=== PATIENT | female | born 1965 | race Caucasian/White ===

== ENCOUNTER 2022-01-02 22:31 | Observation (INO) | payer BC ==
[~2022-01-02] VITALS: Ht 170.2 cm; Wt 87.4 kg
[2022-01-02] MEDS ORDERED: NITROGLYCERIN 0.4 MG SL TABS BTL 25'S SL PRN (22:45)
[2022-01-02] MEDS ORDERED: ACETAMINOPHEN 325 MG TABLET PO PRN (22:45)
[2022-01-02] MEDS ORDERED: morphine INJ 4 MG/ML 1 ML (VIAL/SYRINGE) IV PRN (22:45)
[2022-01-02] MEDS ORDERED: polyethylene glycoL POWDER 17 GM (MIRALAX) PACK PO PRN (22:45)
[2022-01-02] MEDS ORDERED: CALCIUM CARBONATE 500 MG (TUMS) TAB.CHEW PO PRN (22:45)
[2022-01-02] MEDS ORDERED: ONDANSETRON 4 MG/2 ML (SDV) Z0FRAN IV PRN (22:45)
[2022-01-02] MEDS ORDERED: MELATONIN 3 MG TABLET PO PRN (22:45)
[2022-01-02] MEDS ORDERED: PATIENT MAY USE OWN MEDS, ALL PO SCH (22:45)
[2022-01-03] VITALS (9 sets, daily range): BP systolic 98–158; BP diastolic 62–87
[2022-01-03] MEDS: NS IV 1000 ML 1,000 ML IV SCH ×3 (00:35→14:51)
[2022-01-03 05:49] LABS: HEMATOCRIT 41 % (35-52); HEMOGLOBIN 13.6 g/dL (11.5-16.0); MEAN CORPUSCULAR HEMOGLOBIN 30 pg (25-34); MEAN CORPUSCULAR HGB CONC 33 g/dL (32-36); MEAN CORPUSCULAR VOLUME 89 fL (80-99); PLATELET COUNT 275 10^3/uL (130-400); WHITE BLOOD COUNT 6.4 10^3/uL (4.3-11.0)
[2022-01-03 06:21] LABS: CALCIUM 9.3 MG/DL (8.5-10.1)
[2022-01-03 06:26] LABS: CREATININE SERUM 0.77 MG/DL (0.60-1.30)
[2022-01-03] MEDS: inSUlin ASPART (NovoLOG) 1 UNIT/0.01 ML (CHARGE PER UNIT) SC SCH ×2 (06:30→11:59)
[2022-01-03] MEDS: ASPIRIN E.C. 81 MG (ECOTRIN) TAB PO SCH (08:23)
--- NOTE | 2022-01-03 09:57 | Consultation-Cardiology ---
HPI-Cardiology Cardiology Consultation: Date of Consultation 01/03/22 Date of Admission 01/03/22 Attending Physician Admitting Physician Admitting Physician: Jennifer Reyes MD Attending Physician: Jennifer Reyes MD Consulting Physician RYANNE SEALS JR, MD HPI: Time Seen by a Provider: 09:55 Chief Complaint: REASON FOR CONSULTATION: Chest pain. I had the pleasure of seeing Oliva on the medical/surgical unit at [facility] in [place], [place] today. She has no known history of coronary artery disease. For about the past week she has been having some intermittent episodes of midsternal chest pain. This would make her feel short of breath. These were usually short-lived. These did not seem to occur with exertion. She would just take some deep breaths and wait for this to pass. She did not seek medical attention. However, yesterday the chest discomfort became more severe. This was again midsternal and associated with shortness of breath. She went to an outside hospital and was given sublingual nitroglycerin and her chest discomfort resolved. She denies any further chest discomfort. She had troponin levels drawn at the outside hospital which were found to be abnormal and she was mckeon sferred to our facility for further treatment and evaluation. She denies dyspnea on exertion, paroxysmal nocturnal dyspnea, orthopnea, or palpitations. She has had some occasional lightheaded spells but denies any syncope. She denies any lower extremity edema. Certain portions of this document may have been dictated utilizing voice recognition technology. Inherent to this technology, typographical and grammatical errors may exist. As much as I am diligent to identify and correct these mistakes, some errors may remain in the document. Review of Systems-Cardiology Review of Systems Other comments Review of 10 organ systems is as per the history of present illness, otherwise negative. NEW-Rmoeef-Gymqvo Hx Patient Social History Smoking Status: Current Everyday Smoker Have you traveled recently?: No Alcohol Use?: Yes Pt feels they are or have been: No Tobacco type used: Cigarettes Past Medical History PMH As described under Assessment. Family Medical History Family Medical History: Her father had coronary stents in his 70's and is now in his 80's. Allergies and Home Medications Allergies Coded Allergies: No Known Drug Allergies (Unverified , 01/03/22) Patient Home Medication List Home Medication List Reviewed: Yes Ibuprofen (Ibuprofen) 200 Mg Tablet, 800 MG PO Q8H PRN for PAIN-MILD (1-4), (Reported) Entered as Reported by: CARLOS CAMNT on 01/03/22 1201 Last Action: Reviewed Exam Vital Signs Vital Signs Date Time Temp Pulse Resp B/P (MAP) Pulse Ox O2 Delivery O2 Flow Rate FiO2 01/03/22 12:26 36.4 75 20 126/78 (94) 97 Room Air Physical Exam General: Alert. No acute distress. Well nourished and appears stated age. She is overweight. Eye: Extraocular movements are intact. Conjunctivae are clear. There are no xanthelasma. HENT: Normocephalic. Atraumatic. Carotid pulsations 2/2 without bruits. Neck: Jugular venous pressure does not appear elevated. No thyromegaly appreciated. Respiratory: Lungs are clear to auscultation. Respirations are non-labored. Jewell th sounds are equal. Symmetrical chest wall expansion. Cardiovascular: Normal rate. Regular rhythm. No murmur. No gallop. Point of maximal impulse is not appear displaced. Good pulses equal in all extremities. No edema. Gastrointestinal: Soft. Normal bowel sounds. Skin: Skin turgor is normal. There is no pallor. Musculoskeletal: No kyphosis or scoliosis appreciated. Neurologic: Alert and oriented to person, place, time. Cranial nerves 3-12 appear grossly intact. The patient has good motor tone strength in the upper and lower extremities bilaterally. Psychiatric: Cooperative. Appropriate mood & affect. Labs Laboratory Tests Test 01/03/22 05:20 01/03/22 08:50 01/03/22 11:27 Range/Units White Blood Count 6.4 4.3-11.0 10^3/uL Red Blood Count 4.60 3.80-5.11 10^6/uL Hemoglobin 13.6 11.5-16.0 g/dL Hematocrit 41 35-52 % Mean Corpuscular Volume 89 80-99 fL Mean Corpuscular Hemoglobin 30 25-34 pg Mean Corpuscular Hemoglobin Concent 33 32-36 g/dL Red Cell Distribution Width 12.8 10.0-14.5 % Platelet Count 275 130-400 10^3/uL Mean Platelet Volume 10.0 9.0-12.2 fL Sodium Level 141 135-145 MMOL/L Potassium Level 4.0 3.6-5.0 MMOL/L Chloride Level 109 H 98-107 MMOL/L Carbon Dioxide Level 22 21-32 MMOL/L Anion Gap 10 5-14 MMOL/L Blood Urea Nitrogen 10 7-18 MG/DL Creatinine 0.77 0.60-1.30 MG/DL Estimat Glomerular Filtration Rate 89 BUN/Creatinine Ratio 13 Glucose Level 97 70-105 MG/DL Calcium Level 9.3 8.5-10.1 MG/DL Troponin I 0.047 H 0.042 H <0.028 NG/ML Triglycerides Level 156 H <150 MG/DL Cholesterol Level 212 H < 200 MG/DL LDL Cholesterol Direct 163 H 1-129 MG/DL VLDL Cholesterol 31 5-40 MG/DL HDL Cholesterol 36 L 40-60 MG/DL Glucometer 94 70-110 MG/DL Radiology ECHOCARDIOGRAM (01/03/2022): 1. Left ventricle: The cavity size is normal. There is mild concentric hypertrophy. Systolic function is normal. The estimated ejection fraction is 60- 65%. There were no regional wall motion abnormalities identified. Doppler parameters are consistent with abnormal left ventricular relaxation (grade 1 diastolic dysfunction). 2. Mitral valve: There is mild mitral regurgitation. 3. Pulmonary arteries: The estimated pulmonary artery systolic pressure is 43 mmHg assuming a right atrial pressure of 5 mmHg. ECG Impression ECG Comment Sinus rhythm with sinus arrhythmia. Diagnosis/Problems Diagnosis/Problems (1) Chest pain Assessment & Plan: Exact etiology unclear. This sounds also it is consistent with cardiac chest pain although there did not seem to be any change with exertion. On the other hand, she does have a borderline abnormal troponin level. As such, I recommend further evaluation with a cardiac catheterization. She has been started on aspirin and statin medication. I have explained the benefits and risks of the procedure to the patient and her family and all are in agreement to proceed. (2) Troponin level elevated Assessment & Plan: She has mild elevation of the troponin level and no changes on her electrocardiogram. This could be due to a non-ST elevation myocardial infarction or possibly some other etiology of troponin elevation. We will evaluate her further with a cardiac catheterization as above. (3) Mixed hyperlipidemia Assessment & Plan: Her LDL level is elevated. I have ordered rosuvastatin. (4) Pulmonary hypertension Assessment & Plan: She has mild elevation of the pulmonary pressure noted on her echocardiogram. This could be due to undiagnosed underlying chronic obstructive pulmonary disease related to her cigarette smoking. On the other hand, if her cardiac catheterization does not reveal any obstructive coronary artery disease, then a pulmonary embolism would be in the differential diagnosis of her chest discomfort and we may need to consider CT angiogram of the chest if that is the case. (5) Obesity Assessment & Plan: She needs to work on weight loss. (6) Cigarette smoker Assessment & Plan: Cigarette smoking cessation was strongly encouraged. RYANNE SEALS JR, MD Jan 03, 2022 09:57
[2022-01-03] MEDS ORDERED: NICOTINE 7 MG (NICODERM) PATCH TD ONE (10:15)
[2022-01-03] MEDS ORDERED: HEParin (CATH LAB) 2,000 ML IV ONE (11:49)
[2022-01-03] MEDS ORDERED: LIDOCAINE 1% INJ 20 ML VIAL ONE (11:49)
--- NOTE | 2022-01-03 11:56 | History & Physical-Hospitalist ---
History of Present Illness HPI/Chief Complaint Patient is a 56-year-old female with past medical history of hyperlipidemia and tobacco abuse who presented to the emergency department due to chest pain. She presented to outside hospital at [facility] after a 2-day history of chest pressure and tightness. She reports that started on the and was worse with exertion. It improved with rest. She was also dyspneic with exertion. She has no previous history like this. In the emergency department she was found to have a mildly elevated high-sensitivity troponin at 22 which trended up to 43. She was transferred here for cardiac evaluation. Troponin here was 0.047 and cardiology has been consulted. She reports persistent chest pressure at this time. Source: patient Date Seen 01/03/22 Time Seen by a Provider: 10:30 Attending Physician PCP Admitting Physician: Mikayla Reyes MD Attending Physician: Mikayla Reyes MD Referring Physician Date of Admission Jan 02, 2022 at 23:26 Home Medications & Allergies Home Medications Reviewed patient Home Medication Reconciliation performed by pharmacy medication reconciliations farm technician and/or nursing. Patients Allergies have been reviewed. Allergies Allergies Coded Allergies No Known Drug Allergies (Unverified01/03/22) Past Ppmlszi-Znlmya-Jfhafm Hx Patient Social History Tobacco Use?: Yes Tobacco type used: Cigarettes Smoking Status: Current Everyday Smoker (1ppd) Smokeless type used: Pouch Smokeless Tobacco Frequency: Light User Use of E-Cig and/or Vaping dev: No Substance use?: No Alcohol Use?: Yes Alcohol type: Beer Additional alcohol type: wine coolers Alcohol Frequency: Rarely Pt feels they are or have been: No Immunizations Up To Date Tetanus Booster (TDap): Unknown Hepatitis A: No Hepatitis B: No Current Status status: No status: No Advance Directives: No Communicates: Verbally Primary Language: Albanian Preferred Spoken Language: Albanian Is interpretation needed?: No Implanted or Applied Medical D: None Past Medical History Surgeries: Hysterectomy, Tonsillectomy, Tubal Ligation High Cholesterol Family Medical History Reviewed Nursing Family Hx Heart Disease, CAD Over 55 Years Old Review of Systems Constitutional: No chills, No diaphoresis, No fever EENTM: no symptoms reported Respiratory: No cough; dyspnea on exertion, short of breath Cardiovascular: chest pain; No edema, No Hx of Intervention, No syncope Gastrointestinal: No abdominal pain, No constipation, No diarrhea, No nausea, No vomiting Genitourinary: no symptoms reported Musculoskeletal: no symptoms reported Skin: no symptoms reported Psychiatric/Neurological: No Symptoms Reported Physical Exam Physical Exam Vital Signs Vital Signs - First Documented 01/03/22 00:01 Temp 36.6 Pulse 70 Resp 16 B/P (MAP) 150/81 (104) Pulse Ox 97 O2 Delivery Room Air Capillary Refill : Height, Weight, BMI Height: '" Weight: lbs. oz. kg; 30.17 BMI Method: General Appearance: No Apparent Distress, WD/WN HEENT: PERRL/EOMI, Moist Mucous Membranes; No Scleral Icterus (L), No Scleral Icterus (R) Neck: Normal Inspection, Supple Respiratory: Lungs Clear, No Accessory Muscle Use, No Respiratory Distress Cardiovascular: Regular Rate, Rhythm, No JVD, No Murmur Gastrointestinal: Normal Bowel Sounds, Non Tender, Soft Extremity: Normal Capillary Refill, No Calf Tenderness, No Pedal Edema Neurologic/Psychiatric: Alert, Oriented x3, Normal Mood/Affect; No Aphasia, No Facial Droop Skin: Normal Color, Warm/Dry Results Results/Procedures Labs Laboratory Tests 01/03/22 05:20 Patient resulted labs reviewed. Assessment/Plan Admission Diagnosis Chest pain Admission Status: Observation Assessment and Plan Chest pain elevated troponin hyperlipidemia Troponin this AM pending Cardiology consulted, appreciate recs Echo ordered Telemetry ASA and Lovenox given at OSH tobacco abuse recommended cessation Is currently starting wellbutrin through PCP to help quit smoking MIKAYLA REYES MD Jan 03, 2022 11:56
[2022-01-03] MEDS ORDERED: IBUP-2473 PO (12:01)
[2022-01-03] MEDS ORDERED: NS IV 1000 ML 1,000 ML IV ONE (14:00)
[2022-01-03] MEDS ORDERED: VERAPAMIL 5 MG/2 ML (CALAN) VIAL IV ONE (16:51)
[2022-01-03] MEDS ORDERED: MIDAZOLAM 5 MG/5 ML (VERSED) VIAL ONE (16:51)
[2022-01-03] MEDS ORDERED: NITRO DRIP 25000 MCG/D5W 250 ML IV ONE (16:51)
[2022-01-03] MEDS ORDERED: HEParin 1000 UNIT/ML (10ML VIAL) FOR BOLUS ONE (16:51)
[2022-01-03] MEDS ORDERED: fentaNYL INJ 100 MCG/2 ML AMP ONE (16:52)
--- NOTE | 2022-01-03 17:11 | Pre-Op Note & Conscious Sedat ---
Pre-Operative Progress Note H&P Reviewed The H&P was reviewed, patient examined and no changes noted. Date H&P Reviewed: Jan 03, 2022 Time H&P Reviewed: 17:10 Pre-Op Diagnosis: Non-ST elevation myocardial infarction Given her current clinical status, she is considered moderately frail. She has no history of heart failure. Conscious Sedation Pre-Proced Time 17:10 ASA Score 2 For ASA 3 and 4: Consider anesthesia and medical clearance. Also, for patients with a history of failed moderate sedation consider anesthesia. Airway Lungs Heart ASA score ASA 1: a normal healthy patient ASA 2: a patient with a mild systemic disease (mid diabetes, controlled hypertension, obesity ASA 3: a patient with a severe systemic disease that limits activity (angina, COPD, prior Myocardial infarction) ASA 4: a patient with an incapacitating disease that is a constant threat to life (CHF, renal failure) ASA 5: a moribund patient not expected to survive 24 hrs. (ruptured aneurysm) ASA 6: a declared brain- patient whose organs are being harvested. For emergent operations, add the letter E after the classification Mallampati Classification Grade 2 Sedation Plan Analgesia, Amnesia, Plan communicated to team members, Discussed options with patient/fam, Discussed risks with patient/fam The patient is an appropriate candidate to undergo the planned procedure, sedation, and anesthesia. The patient immediately re-assessed prior to indication. RYANNE SEALS JR, MD Jan 03, 2022 17:10
[2022-01-03] MEDS ORDERED: morphine INJ 4 MG/ML 1 ML (VIAL/SYRINGE) ONE (17:41)
[2022-01-03] MEDS ORDERED: TICAGRELOR 90 MG TABLET (BRILINTA) PO ONE (17:54)
--- NOTE | 2022-01-03 18:24 | Cardiac Cath Report ---
CARDIAC CATHETERIZATION DATE OF PROCEDURE: 01/03/2022 INDICATION: Non-ST elevation myocardial infarction. HISTORY: The patient is a 56 year old female with no previously known history of coronary artery disease who presented to an outside hospital with crescendo chest pain. She was found to have an elevated high-sensitivity troponin level at the outside facility. She had been given sublingual nitroglycerin and her chest discomfort resolved. She was then transferred to our hospital and again had mild elevation of the troponin level consistent with a non-ST elevation myocardial infarction. As such, she is now referred for further evaluation with a cardiac catheterization. Given her current clinical status, she is considered moderately frail. She has no history of heart failure. PROCEDURES PERFORMED: 1. Left heart catheterization with hemodynamic measurements. 2. Diagnostic [place] coronary angiography. 3. Right brachial artery angiography (third order right upper extremity). 4. Status post drug-eluting stent placement to the distal left circumflex coronary artery (third obtuse marginal branch). This was the ischemia related vessel for the acute non-ST elevation myocardial infarction. PROCEDURE DESCRIPTION: After informed consent and in the fasting state, left heart catheterization was performed through the right radial artery utilizing a 6 Malawian system by percutaneous approach. Standard 5 Malawian Alana catheters were utilized for the diagnostic portion of the procedure. Once the left circumflex coronary artery was identified as the ischemia related vessel, I attempted to pass a 6 Malawian CLS 3.5 guide catheter from the right radial artery into the ascending aorta. However, there was significant amount of spasm of the right brachial artery. I performed an angiogram of the right brachial artery through the CLS 3.5 guide catheter and this confirms significant spasm of the right brachial artery. The guide catheter was removed. I subsequently gained access to the right femoral artery utilizing a micropuncture technique by percutaneous approach. The micropuncture sheath was then exchanged for a stand joe 6 Malawian sheath. The CLS 3.5 guide catheter was then utilized for the percutaneous coronary intervention. All catheters were exchanged over a guidewire. Following the procedure, a vascular band was applied to the radial artery access site and the sheath was removed with good hemostasis. Following the procedure, a right femoral angiogram revealed the sheath to be entering ch est above the bifurcation and the vessel was free of significant disease. A Mynx closure device was deployed for femoral arterial hemostasis. RESULTS: HEMODYNAMICS: The aortic pressure was 142/78 mmHg. The left ventricular pressure was 141/0 mmHg with a left ventricular end-diastolic pressure of 14 mmHg. There was no significant pressure gradient upon pullback across aortic va lve. CORONARY ANGIOGRAPHY: Left main coronary artery: Free of significant disease. Left anterior descending coronary artery: Free of significant disease. Left circumflex coronary artery: Codominant and the main vessel was free of significant disease. The first major obtuse marginal branch had a 70% stenosis in the ostium with MARLEN-3 flow. The third major obtuse marginal branch had a 99% stenosis with MARLEN I flow. This was most likely the ischemia related vessel for the acute myocardial infarction. There was a small left posterolateral branch which was free of significant disease. Right coronary artery: Codominant and free of significant disease. RIGHT BRACHIAL ARTERY ANGIOGRAM: After removing the 5 Malawian JR4 catheter, the patient was having some apparent spasm in the right upper extremity. When I passed the 5 Malawian JL 4 catheter up into the right radial artery, there was again some spasm and the patient was uncomfortable. I removed the guidewire. Intra-arterial nitroglycerin was sent injected through the diagnostic catheter. I was unable to pass the diagnostic catheter into the aortic root and perform the left coronary angiogram. However, when I then attempted to pass the 6 Malawian CLS 3.5 guide catheter into the aortic root from the right radial artery, the patient was having even more apparent spasm. The guidewire was removed. The CLS 3.5 guide catheter was positioned in the distal segment of the brachial artery and an angiogram was performed. This showed significant spasm of the right brachial artery. Additional intra-arterial nitroglycerin was administered through the guide catheter but the spasm persisted. As such, the right radial artery access site was aborted for any additional attempt at the percutaneous intervention. PERCUTANEOUS CORONARY INTERVENTION: Percutaneous coronary intervention was carried out on the third obtuse marginal branch through the 6 Malawian CLS 3.5 guide catheter from the right femoral approach. The lesion was successfully crossed with a Whisper medium support guidewire. I subsequently performed coronary and plasty with a 2 x 12 mm Trek balloon at a pressure of 6 rosetta. I then advanced a 2 x 15 mm Resolute Dimitri stent into the third obtuse marginal branch. There was a significant amount of movement in the system. I then advanced a Prowater guidewire into the left posterolateral branch which helped to stabilize the entire system. I subsequently deployed the Resolute Dimitri stent in the third obtuse marginal branch at a pressure of 14 rosetta. Following stent placement, there was 0% residual stenosis with MARLEN-3 flow. I could see some evidence of probable spasm around the stent. IMPRESSION: 1. Mildly elevated left heart pressures. 2. There was a 99% stenosis of the third obtuse marginal branch. This was most likely the ischemia related vessel for the non-ST elevation myocardial infarction. 3. Right brachial artery angiogram revealed significant spasm of the right brachial artery. 4. Status post drug-eluting stent placement to the third obtuse marginal branch with a 2 x 15 mm Resolute Dimitri stent was 0% residual stenosis and MARLEN-3 flow. Following the stent placement, there did seem to be some appearance of spasm around the stent. 5. The patient is known to have normal left ventricular systolic function with an estimated ejection fraction of 60-65% by echocardiogram performed earlier today. Certain portions of this document may have been dictated utilizing voice recognition technology. Inherent to this technology, typographical and grammatical errors may exist. As much as I am diligent to identify and correct these mistakes, some errors may remain in the document. RYANNE SEALS JR, MD Jan 03, 2022 18:24
[2022-01-03] MEDS ORDERED: ENOXAPARIN 40 MG/0.4 ML (LOVENOX) SYR SC SCH (18:30)
[2022-01-03] MEDS ORDERED: ISOSORBIDE MONONITRATE 30 MG (IMDUR) TAB PO NR (18:30)
[2022-01-03] MEDS ORDERED: NS IV 1000 ML 1,000 ML IV SCH (18:30)
[2022-01-03] MEDS ORDERED: TICAGRELOR 90 MG TABLET (BRILINTA) PO SCH (21:00)
[2022-01-03] MEDS ORDERED: ROSUVASTATIN 20 MG (CRESTOR) TABLET PO SCH ×2 (21:00)
[2022-01-04 00:49] VITALS: BP 110/69
[2022-01-04 03:56] VITALS: BP 103/62
[2022-01-04] MEDS ORDERED: TICAGRELOR 90 MG TABLET (BRILINTA) PO SCH (06:00)
[2022-01-04 07:49] VITALS: BP 136/75
[2022-01-04] MEDS ORDERED: TICA90TA PO (08:22)
[2022-01-04] MEDS ORDERED: NITR0.4T42 SL (08:22)
[2022-01-04] MEDS ORDERED: ISOS30TA82 PO (08:22)
[2022-01-04] MEDS ORDERED: ROSU20TA32 PO (08:22)
[2022-01-04] MEDS ORDERED: ASPI-1238 PO (08:22)
[2022-01-04] MEDS ORDERED: MTP25TSR PO (08:22)
[2022-01-04] MEDS: ASPIRIN E.C. 81 MG (ECOTRIN) TAB PO SCH (08:33)
[2022-01-04] MEDS ORDERED: ISOSORBIDE MONONITRATE 30 MG (IMDUR) TAB PO SCH (09:00)
--- NOTE | 2022-01-04 09:27 | Discharge Inst-Simple/Standard ---
Discharge Inst-Standard Discharge Medications New, Converted or Re-Newed RX: Transmitted to Pharmacy Patient Instructions/Follow Up Plan of Care/Instructions/FU: Please continue to take your medications as written. Please follow up with your primary care doctor to follow up this hospital stay. Activity as Tolerated: Yes Discharge Diet: Cardiac Diet Return to The Hospital For: Chest pain, shortness of breath, fever, weakness, if you feel you are getting worse. MIKAYLA MATHEW MD Jan 04, 2022 09:27
[2022-01-04] MEDS ORDERED: IBUPROFEN 600 MG (MOTRIN) TAB PO PRN (09:45)
--- NOTE | 2022-01-04 09:49 | Discharge Summary ---
Diagnosis/Chief Complaint Date of Admission Jan 02, 2022 at 23:26 Date of Discharge Discharge Date: Jan 04, 2022 Admission Diagnosis Chest pain Primary Care Discharge Diagnosis (1) Chest pain Assessment & Plan: Exact etiology unclear. This sounds also it is consistent with cardiac chest pain although there did not seem to be any change with exertion. On the other hand, she does have a borderline abnormal troponin level. As such, I recommend further evaluation with a cardiac catheterization. She has been started on aspirin and statin medication. I have explained the benefits and risks of the procedure to the patient and her family and all are in agreement to proceed. (2) Troponin level elevated Assessment & Plan: She has mild elevation of the troponin level and no changes on her electrocardiogram. This could be due to a non-ST elevation myocardial infarction or possibly some other etiology of troponin elevation. We will evaluate her further with a cardiac catheterization as above. (3) Mixed hyperlipidemia Assessment & Plan: Her LDL level is elevated. I have ordered rosuvastatin. (4) Pulmonary hypertension Assessment & Plan: She has mild elevation of the pulmonary pressure noted on her echocardiogram. This could be due to undiagnosed underlying chronic obstructive pulmonary disease related to her cigarette smoking. On the other hand, if her cardiac catheterization does not reveal any obstructive coronary artery disease, then a pulmonary embolism would be in the differential diagnosis of her chest discomfort and we may need to consider CT angiogram of the chest if that is the case. (5) Obesity Assessment & Plan: She needs to work on weight loss. (6) Cigarette smoker Assessment & Plan: Cigarette smoking cessation was strongly encouraged. Discharge Summary Discharge Physical Exam Allergies: Coded Allergies: No Known Drug Allergies (Unverified , 01/03/22) Vitals & I&Os Vital Signs Date Time Temp Pulse Resp B/P (MAP) Pulse Ox O2 Delivery O2 Flow Rate FiO2 01/04/22 07:49 36.1 64 18 136/75 (95) 96 Room Air Hospital Course Labs (last 24 hrs) Laboratory Tests 01/03/22 11:27: Glucometer 94 01/03/22 13:20: D-Dimer <= 0.27 Patient resulted labs reviewed. Discharge Home Medications: Active Scripts Active Aspirin EC (Aspirin) 81 Mg Tablet.dr 81 Mg PO DAILY Metoprolol Succinate 25 Mg Tab.er.24h 25 Mg PO DAILY Nitroglycerin 0.4 Mg Tab.subl 0.4 Mg SL UD PRN Isosorbide Mononitrate ER (Isosorbide Mononitrate) 30 Mg Tab.er.24h 30 Mg PO DAILY Rosuvastatin Calcium 20 Mg Tablet 20 Mg PO HS Brilinta (Ticagrelor) 90 Mg Tablet 90 Mg PO Q12H Reported Ibuprofen 200 Mg Tablet 800 Mg PO Q8H PRN TAKES 2 (400MG) TABS Instructions to patient/family Please see electronic discharge instructions given to patient. MIKAYLA MATHEW MD Jan 04, 2022 09:49
[2022-01-04 11:11] VITALS: BP 106/62
--- NOTE | 2022-01-04 11:50 | Cardiology Progress Note ---
Progress Note-Cardiology Events since last exam Date Seen by Provider: Jan 04, 2022 Time Seen by Provider: 11:49 Events since last exam I am following her due to NSTEMI. She denies any further chest pain. She denies dyspnea, palpitations, syncope, or ankle edema. Her right radial and right fem oral access sites are without hematoma. She wants to go home today. Certain portions of this document may have been dictated utilizing voice recognition technology. Inherent to this technology, typographical and grammatical errors may exist. As much as I am diligent to identify and correct these mistakes, some errors may remain in the document. Vitals Last set of Vitals Signs Vital Signs 01/04/22 11:11 Temp 36.2 Pulse 52 Resp 18 B/P (MAP) 106/62 (77) Pulse Ox 98 O2 Delivery Room Air Exam Vital Signs Vital Signs Date Time Temp Pulse Resp B/P (MAP) Pulse Ox O2 Delivery O2 Flow Rate FiO2 01/04/22 11:11 36.2 52 18 106/62 (77) 98 Room Air Physical Exam General: Alert. No acute distress. Eye: No xanthelasma. HENT: Normocephalic. Neck: Jugular venous pressure does not appear elevated. Respiratory: Lungs are clear to auscultation. Respirations are non-labored. Breath sounds are equal. Symmetrical chest wall expansion. Cardiovascular: Normal rate. Regular rhythm. No murmur. No gallop. No edema. Gastrointestinal: Soft. Normal bowel sounds. Skin: Warm. Dry. Neurologic: Alert and oriented to person, place, time. Cranial nerves 3-11 grossly intact. Psychiatric: Cooperative. Appropriate mood & affect. Labs Diagnosis/Problems Diagnosis/Problems (1) Non-ST elevation myocardial infarction (NSTEMI), initial care episode Assessment & Plan: Her cardiac catheterization showed a subtotal occlusion of the third obtuse marginal branch that was treated with 1 drug-eluting stent. She also has residual disease in another obtuse marginal branch that I will plan to treat medically. She may have also had some coronary spasm. We will continue guideline directed medical therapy with aspirin, ticagrelor, beta- arielle, isosorbide, and statin medication. She can be discharged home. I will plan to see her in the office in 1 month. (2) Mixed hyperlipidemia Assessment & Plan: Continue intensive dose rosuvastatin in light of the acute myocardial infarction. (3) Pulmonary hypertension Assessment & Plan: She has mild elevation of the pulmonary pressure noted on her echocardiogram. This could be due to undiagnosed underlying chronic obstructive pulmonary disease related to her cigarette smoking. On the other hand, if her cardiac catheterization does not reveal any obstructive coronary artery disease, then a pulmonary embolism would be in the differential diagnosis of her chest discomfort and we may need to consider CT angiogram of the chest if that is the case. (4) Cigarette smoker Assessment & Plan: Cigarette smoking cessation was strongly encouraged. (5) Obesity Assessment & Plan: She needs to work on weight loss. RYANNE SEALS JR, MD Jan 04, 2022 11:50
== END 2022-01-04 12:36 | disposition home or self-care (01) ==
LOC: 4TH 23:26
PROVIDERS: ADMIT Family Medicine; ATTEND Family Medicine
DX: I21.4 Non-ST elevation (NSTEMI) myocardial infarction (principal); I25.10 Atherosclerotic heart disease of native coronary artery without angina pectoris; F17.210 Nicotine dependence, cigarettes, uncomplicated; E78.2 Mixed hyperlipidemia; I27.20 Pulmonary hypertension, unspecified; E66.8 Other obesity; Z68.30 Body mass index [BMI] 30.0-30.9, adult; Z82.49 Family history of ischemic heart disease and other diseases of the circulatory system
CPT/HCPCS: 36415; 80048; 80061; 82947; 84484; 85027; 85379; 87081; 93005; 93306; 93458; 96372; 96374

== ENCOUNTER 2022-04-25 23:26 | Observation (INO) | payer BC ==
[~2022-04-25] VITALS: Ht 170 cm; Wt 83.5 kg
[~2022-04-25 23:26] MED LIST: ASPI-1238 PO; IBUP-2473 PO; ISOS30TA82 PO; MTP25TSR PO; NITR0.4T42 SL; ROSU20TA32 PO; TICA90TA PO
[2022-04-25] MEDS ORDERED: morphine INJ 10 MG/ML 1ML (SYR OR VIAL) IV STA (23:54)
[2022-04-26] VITALS (9 sets, daily range): BP systolic 113–146; BP diastolic 65–93
[2022-04-26] MEDS ORDERED: ASPIRIN 81 MG CHEW (CHILDREN'S ASA) PO ONE
[2022-04-26 00:02] LABS: BASOPHILS # (AUTO) 0.1 10^3/uL (0.0-0.1); BASOPHILS % (AUTO) 1 % (0-10); EOSINOPHILS # (AUTO) 0.3 10^3/uL (0.0-0.3); EOSINOPHILS % (AUTO) 4 % (0-10); HEMATOCRIT 36 % (35-52); HEMOGLOBIN 12.3 g/dL (11.5-16.0); LYMPHOCYTES % (AUTO) 25 % (12-44); MEAN CORPUSCULAR HEMOGLOBIN 30 pg (25-34); MEAN CORPUSCULAR HGB CONC 34 g/dL (32-36); MEAN CORPUSCULAR VOLUME 88 fL (80-99); MEAN PLATELET VOLUME 10.1 fL (9.0-12.2); MONOCYTES # (AUTO) 0.6 10^3/uL (0.0-1.0); MONOCYTES % (AUTO) 8 % (0-12); NEUTROPHILS # (AUTO) 4.9 10^3/uL (1.8-7.8); NEUTROPHILS % (AUTO) 62 % (42-75); PLATELET COUNT 266 10^3/uL (130-400); WHITE BLOOD COUNT 7.9 10^3/uL (4.3-11.0)
[2022-04-26 00:21] LABS: ALBUMIN 4.3 GM/DL (3.2-4.5)
[2022-04-26 00:24] LABS: TOTAL PROTEIN 7.3 GM/DL (6.4-8.2)
[2022-04-26 00:26] LABS: BILIRUBIN,TOTAL 0.3 MG/DL (0.1-1.0)
[2022-04-26 00:27] LABS: CREATININE SERUM 0.74 MG/DL (0.60-1.30)
[2022-04-26 00:30] LABS: MAGNESIUM 2.1 MG/DL (1.6-2.4)
[2022-04-26 00:42] LABS: CREATINE KINASE MB 1.4 NG/ML (<6.6)
[2022-04-26 00:43] LABS: PROTHROMBIN TIME PATIENT 13.5 SEC (12.2-14.7)
[2022-04-26] MEDS ORDERED: NITROGLYCERIN 0.4 MG SL TABS BTL 25'S SL PRN ×3 (02:15→10:15)
[2022-04-26] MEDS ORDERED: ONDANSETRON 4 MG/2 ML (SDV) Z0FRAN IVP PRN (02:15)
[2022-04-26] MEDS ORDERED: PATIENT MAY USE OWN MEDS, ALL PO SCH ×2 (02:15→11:30)
[2022-04-26] MEDS ORDERED: morphine INJ 4 MG/ML 1 ML (VIAL/SYRINGE) IV PRN (02:15)
[2022-04-26 03:31] LABS: BASOPHILS # (AUTO) 0.1 10^3/uL (0.0-0.1); BASOPHILS % (AUTO) 1 % (0-10); EOSINOPHILS # (AUTO) 0.3 10^3/uL (0.0-0.3); EOSINOPHILS % (AUTO) 4 % (0-10); HEMATOCRIT 34 % (35-52); HEMOGLOBIN 11.6 g/dL (11.5-16.0); LYMPHOCYTES % (AUTO) 28 % (12-44); MEAN CORPUSCULAR HEMOGLOBIN 30 pg (25-34); MEAN CORPUSCULAR HGB CONC 34 g/dL (32-36); MEAN CORPUSCULAR VOLUME 90 fL (80-99); MEAN PLATELET VOLUME 9.9 fL (9.0-12.2); MONOCYTES # (AUTO) 0.5 10^3/uL (0.0-1.0); MONOCYTES % (AUTO) 7 % (0-12); NEUTROPHILS # (AUTO) 4.4 10^3/uL (1.8-7.8); NEUTROPHILS % (AUTO) 61 % (42-75); PLATELET COUNT 245 10^3/uL (130-400); WHITE BLOOD COUNT 7.1 10^3/uL (4.3-11.0)
[2022-04-26 03:38] LABS: CHLORIDE 109 MMOL/L (98-107); POTASSIUM 3.9 MMOL/L (3.6-5.0); SODIUM 141 MMOL/L (135-145)
[2022-04-26 03:39] LABS: CALCIUM 9.8 MG/DL (8.5-10.1)
[2022-04-26 03:40] LABS: GLUCOSE 101 MG/DL (70-105)
[2022-04-26 03:41] LABS: CARBON DIOXIDE 21 MMOL/L (21-32)
[2022-04-26 03:44] LABS: BUN/CREATININE RATIO 17; CREATININE SERUM 0.72 MG/DL (0.60-1.30); GFR ESTIMATED 97
--- NOTE | 2022-04-26 05:14 | Diagnostic Imaging Report ---
INDICATION: Chest pain. No prior examinations are available for comparison. FINDINGS: The heart size, mediastinal configuration, and pulmonary vascularity are within normal limits. There is no pleural effusion, pneumothorax, or pneumonia. The osseous structures are unremarkable. IMPRESSION: No acute cardiopulmonary abnormality. Dictated by: Dictated on workstation # [id number]
--- NOTE | 2022-04-26 05:17 | ED Chest Pain ---
General Chief Complaint: Chest Pain Stated Complaint: CHEST PAIN Nursing Triage Note: PT ARRIVED POV WTH COMPLAINTS OF CHEST PAIN THAT RADIATES TO RIGHT ARM. PT STATED THAT PAIN STARTED YESTERDAY MID AFTERNOON. PT TOOK 2 NITRO AT 8:30PM WITH NO RELIEF. Nursing Sepsis Screen: No Definite Risk Source: patient History of Present Illness Date Seen by Provider: Apr 25, 2022 Time Seen by Provider: 23:32 Initial Comments PT ARRIVES VIA POV FROM HOME IN [place], WITH DAUGHTER C/O CHEST PAIN SINCE AROUND [id number] TONIGHT. PAIN BEGAN WHILE SITTING PAIN IS IN CENTER OF CHEST, AND IS AROUND HER LOWER RIBS--FEELS LIKE A TIGHTNESS --"LIKE MY BRA IS REALLY TIGHT" PAIN RADIATES DOWN RIGHT ARM--THIS PAIN ACTUALLY STARTED YESTERDAY SHE ALSO HAS PAIN IN BOTH SHOULDERS AND ALL ACROSS UPPER BACK AND BETWEEN HER SHOULDER BLADES PAIN COMES AND GOES, WAXES AND WANES NOTHING WORSENS OR IMPROVES PAIN TOOK NTG SL X 2 AT 2029, NO RELIEF RATES PAIN 2/10 AT THIS TIME NO SHORTNESS OF BREATH NO NAUSEA OR VOMITING NO SWEATS NO SWELLING IN LEGS/FEET OR PAIN IN CALVES NO FEVER OR RECENT ILLNESS PT HAD NSTEMI IN DECEMBER WITH STENT X 1 BY SHE HAS FOLLOWED UP WITH HIM IN HIS OFFICE SINCE PT IS CURRENTLY TAKING ASPIRIN AND BRILINTA--SHE FORGOT HER MORNING DOSE OF BRILINTA, BUT TOOK IT TONIGHT SHE STATES THE PAIN TONIGHT IS NOT QUITE THE SAME WITH HER NSTEMI AND THE PAIN IS NOT BAD THIS TIME SINCE DECEMBER, SHE HAS STOPPED SMOKING, AND IS EATING HEALTHIER AND EXERCISING SHE DOES CHEW NICOTINE GUM SEVERAL TIMES A DAY NO HX OF ALCOHOL OR DRUG USE PCP: PRISCILLA MCCOLLUM IN [place] SALES [employer]:DR. SEALS Allergies and Home Medications Allergies Coded Allergies: No Known Drug Allergies (Unverified , 01/03/22) Patient Home Medication List Home Medication List Reviewed: Yes Aspirin (Aspirin EC) 81 Mg Tablet.dr, 81 MG PO DAILY Prescribed by: RYANNE SEALS JR, MD on 01/04/22 0822 Ibuprofen (Ibuprofen) 200 Mg Tablet, 800 MG PO Q8H PRN for PAIN-MILD (1-4), (Reported) Entered as Reported by: CARLOS MARINA on 01/03/22 1201 Isosorbide Mononitrate (Isosorbide Mononitrate ER) 30 Mg Tab.er.24h, 30 MG PO DAILY Prescribed by: RYANNE SEALS JR, MD on 01/04/22821 Metoprolol Succinate (Metoprolol Succinate) 25 Mg Tab.er.24h, 25 MG PO DAILY Prescribed by: RYANNE SEALS JR, MD on 01/04/22821 Nitroglycerin (Nitroglycerin) 0.4 Mg Tab.subl, 0.4 MG SL UD PRN for CHEST PAIN (ANGINA) Prescribed by: RYANNE SEALS JR, MD on 01/04/22821 Rosuvastatin Calcium (Rosuvastatin Calcium) 20 Mg Tablet, 20 MG PO HS Prescribed by: RYANNE SEALS JR, MD on 01/04/22821 Ticagrelor (Brilinta) 90 Mg Tablet, 90 MG PO Q12H Prescribed by: RYANNE SEALS JR, MD on 01/04/22821 Review of Systems Review of Systems Constitutional: No no symptoms reported, No diaphoresis, No fever EENTM: No Symptoms Reported Respiratory: No Symptoms Reported; Denies Cough, Denies Shortness of Air Cardiovascular: See HPI, Chest Pain; Denies Edema, Denies Irregular Heart Rate, Denies Lightheadedness, Denies Palpitations, Denies Syncope Gastrointestinal: No Symptoms Reported Genitourinary: No Symptoms Reported Musculoskeletal: see HPI, back pain Skin: no symptoms reported Psychiatric/Neurological: No Symptoms Reported Endocrine: No Symptoms Reported Hematologic/Lymphatic: No Symptoms Reported Past Jihcmgh-Urzphy-Eycljd Hx Patient Social History Tobacco Use?: Yes Tobacco type used: Cigarettes Smoking Status: Former Smoker Smokeless Tobacco Frequency: Current Someday User (POUCH) Use of E-Cig and/or Vaping dev: No Additional E-Cig or Vaping: NICOTINE GUM-DAILY Substance use?: No Alcohol Use?: Yes Alcohol Frequency: Rarely Pt feels they are or have been: No Immunizations Up To Date Influenza Vaccine Up-to-Date: No; Not Current COVID19 Vaccine Export Sales Assistant: HARISH Past Medical History Surgery/Hospitalization HX: STENT PLACED - DECEMBER Surgeries: Yes Cardiac, Coronary Stent, Hysterectomy, Tonsillectomy, Tubal Ligation Respiratory: No Cardiac: Yes (NSTEMI 12/2021 STENT X 1) Coronary Artery Disease, Heart Attack, High Cholesterol Neurological: No : No Reproductive Disorders: Yes Female Reproductive Disorders: Menstrual Problems 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 ALSO SMOKELESS TOBACCO POUCH. NOW CHEWS NICOTINE GUM -RARE ETOH USE -DENIES DRUG USE PAST SURGICAL HISTORY: -BILATERAL TUBAL LIGATION 1989 -HYSTERECTOMY FOR UTERINE FIBROIDS/OVARIES INTACT 2005 CARDIAC CATH 01/03/[address] SEALS: CORONARY ANGIOGRAPHY: Left main coronary artery: Free of significant disease. Left anterior descending coronary artery: Free of significant disease. Left circumflex coronary artery: Codominant and the main vessel was free of significant disease. The first major obtuse marginal branch had a 70% stenosis in the ostium with MARLEN-3 flow. The third major obtuse marginal branch had a 99% stenosis with MARLEN I flow. This was most likely the ischemia related vessel for the acute myocardial infarction. There was a small left posterolateral branch which was free of significant disease. Right coronary artery: Codominant and free of significant disease. RIGHT BRACHIAL ARTERY ANGIOGRAM: After removing the 5 Serbian JR4 catheter, the patient was having some apparent spasm in the right upper extremity. When I passed the 5 Serbian JL 4 catheter up into the right radial artery, there was again some spasm and the patient was uncomfortable. I removed the guidewire. Intra-arterial nitroglycerin was sent injected through the diagnostic catheter. I was unable to pass the diagnostic catheter into the aortic root and perform the left coronary angiogram. However, when I then attempted to pass the 6 Serbian CLS 3.5 guide catheter into the aortic root from the right radial artery, the patient was having even more apparent spasm. The guidewire was removed. The CLS 3.5 guide catheter was positioned in the distal segment of the brachial artery and an angiogram was performed. This showed significant spasm of the right brachial artery. Additional intra-arterial nitroglycerin was administered through the guide catheter but the spasm persisted. As such, the right radial artery access site was aborted for any additional attempt at the percutaneous intervention. PERCUTANEOUS CORONARY INTERVENTION: Percutaneous coronary intervention was carried out on the third obtuse marginal branch through the 6 Serbian CLS 3.5 guide catheter from the right femoral approach. The lesion was successfully crossed with a Whisper medium support guidewire. I subsequently performed coronary and plasty with a 2 x 12 mm Trek balloon at a pressure of 6 rosetta. I then advanced a 2 x 15 mm Resolute Dimitri stent into the third obtuse marginal branch. There was a significant amount of movement in the system. I then advanced a [place] guidewire into the left posterolateral branch which helped to stabilize the entire system. I subsequently deployed the Resolute [place] stent in the third obtuse marginal branch at a pressure of 14 rosetta. Following stent placement, there was 0% residual stenosis with MARLEN-3 flow. I could see some evidence of probable spasm around the stent. IMPRESSION: 1. Mildly elevated left heart pressures. 2. There was a 99% stenosis of the third obtuse marginal branch. This was most likely the ischemia related vessel for the non-ST elevation myocardial infarction. 3. Right brachial artery angiogram revealed significant spasm of the right brachial artery. 4. Status post drug-eluting stent placement to the third obtuse marginal branch with a 2 x 15 mm Resolute [place] stent was 0% residual stenosis and MARLEN-3 flow. Following the stent placement, there did seem to be some appearance of spasm around the stent. 5. The patient is known to have normal left ventricular systolic function with an estimated ejection fraction of 60-65% by echocardiogram performed earlier today. Physical Exam Vital Signs Vital Signs - First Documented 04/25/22 23:32 Temp 36.5 Pulse 87 Resp 16 B/P (MAP) 150/81 (104) Pulse Ox 99 O2 Delivery Room Air Capillary Refill : Height, Weight, BMI Height: '" Weight: lbs. oz. kg; 28.82 BMI Method: General Appearance: No Apparent Distress, WD/WN HEENT: PERRL/EOMI Neck: Normal Inspection; No Carotid Bruit, No JVD Respiratory: Normal Breath Sounds, No Accessory Muscle Use, No Respiratory Distress, Other (MILD MID AND LOWER CHEST TENDERNESS) Cardiovascular: Regular Rate, Rhythm, No Edema, No JVD, No Murmur, Normal Peripheral Pulses Gastrointestinal: Normal Bowel Sounds, No Organomegaly, No Pulsatile Mass, Non Tender, Soft Extremity: Normal Capillary Refill, Normal Inspection, Normal Range of Motion, Non Tender, No Calf Tenderness, No Pedal Edema Neurologic/Psychiatric: Alert, Oriented x3, No Motor/Sensory Deficits, Normal 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, 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 Norm as Tested Skin: Normal Color, Warm/Dry Progress/Results/Core Measures Results/Orders Lab Results Laboratory Tests Test 04/25/22 23:46 Range/Units White Blood Count 7.9 4.3-11.0 10^3/uL Red Blood Count 4.09 3.80-5.11 10^6/uL Hemoglobin 12.3 11.5-16.0 g/dL Hematocrit 36 35-52 % Mean Corpuscular Volume 88 80-99 fL Mean Corpuscular Hemoglobin 30 25-34 pg Mean Corpuscular Hemoglobin Concent 34 32-36 g/dL Red Cell Distribution Width 12.9 10.0-14.5 % Platelet Count 266 130-400 10^3/uL Mean Platelet Volume 10.1 9.0-12.2 fL Immature Granulocyte % (Auto) 0 % Neutrophils (%) (Auto) 62 42-75 % Lymphocytes (%) (Auto) 25 12-44 % Monocytes (%) (Auto) 8 0-12 % Eosinophils (%) (Auto) 4 0-10 % Basophils (%) (Auto) 1 0-10 % Neutrophils # (Auto) 4.9 1.8-7.8 10^3/uL Lymphocytes # (Auto) 2.0 1.0-4.0 10^3/uL Monocytes # (Auto) 0.6 0.0-1.0 10^3/uL Eosinophils # (Auto) 0.3 0.0-0.3 10^3/uL Basophils # (Auto) 0.1 0.0-0.1 10^3/uL Immature Granulocyte # (Auto) 0.0 0.0-0.1 10^3/uL Prothrombin Time 13.5 12.2-14.7 SEC INR Comment 1.0 0.8-1.4 Activated Partial Thromboplast Time 35 24-35 SEC D-Dimer 0.30 0.00-0.49 UG/ML Sodium Level 141 135-145 MMOL/L Potassium Level 4.0 3.6-5.0 MMOL/L Chloride Level 108 H 98-107 MMOL/L Carbon Dioxide Level 22 21-32 MMOL/L Anion Gap 11 5-14 MMOL/L Blood Urea Nitrogen 11 7-18 MG/DL Creatinine 0.74 0.60-1.30 MG/DL Estimat Glomerular Filtration Rate 94 BUN/Creatinine Ratio 15 Glucose Level 106 H 70-105 MG/DL Calcium Level 10.0 8.5-10.1 MG/DL Corrected Calcium 9.8 8.5-10.1 MG/DL Magnesium Level 2.1 1.6-2.4 MG/DL Total Bilirubin 0.3 0.1-1.0 MG/DL Aspartate Amino Transf (AST/SGOT) 20 5-34 U/L Alanine Aminotransferase (ALT/SGPT) 24 0-55 U/L Alkaline Phosphatase 67 40-136 U/L Total Creatine Kinase 114 29-168 U/L Creatine Kinase MB 1.4 <6.6 NG/ML Myoglobin 37.0 10.0-92.0 NG/ML Troponin I < 0.028 <0.028 NG/ML B-Type Natriuretic Peptide 11.5 <100.0 PG/ML Total Protein 7.3 6.4-8.2 GM/DL Albumin 4.3 3.2-4.5 GM/DL Amylase Level 72 25-125 U/L Lipase 30 8-78 U/L My Orders Orders - MARY HERMAN DO Ekg Tracing (04/25/22 23:35) Cbc With Automated Diff (04/25/22 23:54) Magnesium (04/25/22 23:54) Ekg Tracing (04/25/22 23:54) Comprehensive Metabolic Panel (04/25/22 23:54) Myoglobin Serum (04/25/22 23:54) Protime With Inr (04/25/22 23:54) Partial Thromboplastin Time (04/25/22 23:54) O2 (04/25/22 23:54) Monitor-Rhythm Ecg Trace Only (04/25/22 23:54) Ed Iv/Invasive Line Start (04/25/22 23:54) Creatine Kinase (04/25/22 23:54) Creatine Kinase Mb (04/25/22 23:54) Lipase (04/25/22 23:54) Amylase (04/25/22 23:54) Bnp [place] (04/25/22 23:54) Fibrin Degradation Products (04/25/22 23:54) Troponin I [place] (04/25/22 23:54) Aspirin Chewable Tablet (Baby Aspirin Ch (04/26/22 00:00) Morphine Injection (Morphine Injection (04/25/22 23:54) Chest 1 View, Ap/Pa Only (04/26/22 00:01) Medications Given in ED Current Medications Medications Dose Ordered Sig/Christel Route Start Time Stop Time Status Last Admin Dose Admin Aspirin 324 mg ONCE ONCE PO 04/26/22 00:00 04/26/22 00:01 DC 04/26/22 00:08 324 MG Vital Signs/I&O 04/25/22 23:32 Temp 36.5 Pulse 87 Resp 16 B/P (MAP) 150/81 (104) Pulse Ox 99 O2 Delivery Room Air Blood Pressure Mean: 96 Progress Progress Note : Progress Note GIVEN: -ASPIRIN -MORPHINE PAIN RELIEVED WITH MORPHINE NO NTG GIVEN SHE STATES THAT IT DID NOT HELP WHEN SHE TOOK IT AT HOME. UNEVENTFUL ER STAY Initial ECG Impression Date: Apr 25, 2022 Initial ECG Impression Time: 23:41 Initial ECG Rate: 72 Initial ECG Rhythm: Normal Sinus Diagnostic Imaging Comments CXR--NO ACUTE PROCESS, PENDING RADIOLOGIST REVIEW Reviewed: Reviewed by Me CP/AMI: Aspirin, ECG Departure Communication (Admissions) 0053--SPOKE WITH DR. ARAIZA, ADVISES TO CONSULT DR. SEALS IN AM, AND ADMIT TO MEDICINE 0107--SPOKE WITH DR. BARBA, HOSPITALIST, ACCEPTS PT FOR ADMIT. Impression Primary Impression: Chest pain Disposition: ADMITTED INPATIENT Condition: Improved Admissions Decision to Admit Reason: Admit from ER (General) Decision to Admit/Date: Apr 26, 2022 Time/Decision to Admit Time: 01:00 Departure-Patient Inst. Referrals: SOFIA MCCOLLUM (PCP) Primary Care Physician MARY HERMAN DO Apr 26, 2022 05:17
--- NOTE | 2022-04-26 08:17 | Consultation-Cardiology ---
HPI-Cardiology Cardiology Consultation Date of Consultation 04/26/22 Date of Admission 04/26/22 Time Seen by Provider: 07:20 Indication: Chest pain, tightness HPI Grant is a 56 year old female with history of NSTEMI and stent placement who presented to [facility] with R arm pain, R chest pain, and tightness of her rib cage. Her right arm pain that radiates into her R chest began Saturday. Saturday, she developed a tight, band-like sensation around her lower ribcage. She took 2 nitroglycerin pills, which did not relieve either sensation. She denies SOB, syncope, edema, or previous episodes of chest pain (since stent placement in December). She did feel like she was having palpitations that lasted a few seconds last night, but states that may have been anxiety- induced. She denies any recent trauma, heavy lifting, or falls. While in the ER, a CXR showed no acute cardiopulmonary processes. Serial troponins remained <0.028. Her BNP was 11.5. EKG showed sinus rhythm. Currently, she describes her R arm and chest pain as 2/10 and dull when laying still, but 6/10 with movement. She says it now feels more like a muscular pain. The tight sensation in her ribcage has subsided. She denies nausea, vomiting, and any other illness symptoms. Dr. Blood: I had the pleasure of seeing Grant in the intensive care unit at [facility] in [place], [place] today. She is well-known to me from a previous hospitalization and the office. I had actually just seen her several weeks ago and at that time I started her on ranolazine due to some intermittent anginal type chest discomfort. When she started taking this medication, she started fee ling fatigue. She slowly tapered off the medication and her last dose was a couple of weeks ago. She had also decreased her dose of metoprolol due to some low blood pressures. She was doing well until 2 or 3 days ago when she started having right arm pain. This seemed to start in her shoulder and radiate down her arm. Then she was having pain between her scapula and some left arm discomfort. She did not think much of this and figured she may have just pulled a muscle. However, yesterday she started having tightness across the lower costal margin bilaterally. She took 2 sublingual nitroglycerin. She still had chest discomfort and came to the hospital for further evaluation. Overnight, the chest discomfort subsided. She denies associated complaints. She denies dyspnea, paroxysmal nocturnal dyspnea, orthopnea, palpitations, lightheadedness, syncope, or ankle edema. Because of the chest discomfort, a cardiology consultation was requested. Certain portions of this document may have been dictated utilizing voice recognition technology. Inherent to this technology, typographical and grammatical errors may exist. As much as I am diligent to identify and correct these mistakes, some errors may remain in the document. Home Medications & Allergies Allergies: Coded Allergies: No Known Drug Allergies (Unverified , 01/03/22) GQD-Hqgxpk-Cjybpn Hx Patient Social History Marital Status: Employed/Student: employed Smoking Status: Former Smoker (quit 2 weeks ago) Have you traveled recently?: No Alcohol Use?: Yes Family Medical History Significant Family History: Heart Disease (dad and mom), CAD Over 55 Years Old Review of Systems-General Review of Systems Constitutional: No dizziness, No fever EENTM: No blurred vision, No nose congestion, No throat pain Respiratory: No dyspnea on exertion, No short of breath Cardiovascular: chest pain; No edema; palpitations; No syncope Gastrointestinal: No abdominal pain, No nausea, No vomiting Genitourinary: no symptoms reported Musculoskeletal: other (muscle-like pain R arm into R chest) Skin: no symptoms reported Psychiatric/Neurological: Anxiety ECG Impression ECG Comment Sinus rhythm with left atrial abnormality and nonspecific anterior T wave changes. Physical Exam Physical Exam Vital Signs Vital Signs - First Documented 04/25/22 23:32 Temp 36.5 Pulse 87 Resp 16 B/P (MAP) 150/81 (104) Pulse Ox 99 O2 Delivery Room Air Capillary Refill : Height, Weight, BMI Height: '" Weight: lbs. oz. kg; 28.89 BMI Method: General Appearance: No Apparent Distress, WD/WN HEENT: PERRL/EOMI Neck: Normal Inspection, Supple Respiratory: Lungs Clear, Normal Breath Sounds, No Accessory Muscle Use, No Respiratory Distress, Other (MILD MID AND LOWER CHEST TENDERNESS) Cardiovascular: Regular Rate, Rhythm, No Edema, No Murmur Gastrointestinal: Non Tender, Soft Extremity: Normal Inspection, Non Tender, No Calf Tenderness, No Pedal Edema Neurologic/Psychiatric: Alert, Oriented x3, Normal Mood/Affect Skin: Normal Color, Warm/Dry Comments Dr. Blood: General: Alert. No acute distress. Well nourished and appears stated age. Eye: Extraocular movements are intact. Conjunctivae are clear. There are no xanthelasma. HENT: Normocephalic. Atraumatic. Carotid pulsations 2/2 without bruits. Neck: Jugular venous pressure does not appear elevated. No thyromegaly appreciated. Respiratory: Lungs are clear to auscultation. Respirations are non-labored. Breath sounds are equal. Symmetrical chest wall expansion. Cardiovascular: Normal rate. Regular rhythm. No murmur. No gallop. Point of maximal impulse is not appear displaced. Good pulses equal in all extremities. No edema. Gastrointestinal: Soft. Normal bowel sounds. Skin: Skin turgor is normal. There is no pallor. Musculoskeletal: No kyphosis or scoliosis appreciated. Neurologic: Alert and oriented to person, place, time. Cranial nerves 3-12 appear grossly intact. The patient has good motor tone strength in the upper and lower extremities bilaterally. Psychiatric: Cooperative. Appropriate mood & affect. A/P-Cardiology Admission Diagnosis (1) Chest pain Assessment & Plan: This sounds consistent with musculoskeletal chest discomfort. She has no ischemic changes on her electrocardiogram and 3 undetectable troponin levels. I do not recommend any additional cardiac testing at this point in time. From a cardiac standpoint, she can be discharged home. She actually has a follow-up visit to see me in the office in 2 weeks. (2) Coronary artery disease without angina pectoris Assessment & Plan: As above, it sounds as though she is having noncardiac chest discomfort. I recommend she continue on aspirin, ticagrelor, metoprolol succinate and statin medication. (3) Mixed hyperlipidemia Assessment & Plan: Continue rosuvastatin. (4) Pulmonary hypertension Assessment & Plan: Her previous echocardiogram showed mild pulmonary hypertension. Exact etiology unclear. This could be related to her previous cigarette smoking. She did quit smoking 2 weeks ago. I had been planning on a follow-up echocardiogram approximately 1 year following the initial echocardiogram. Assessment/Plan R arm pain, R chest pain Palpitations Troponins have remained unremarkable, as well as her EKG. Pain is likely mu sculoskeletal since it is reproducible with movement. Monitor telemetry since palpitations reported, EKG has been unremarkable. Pain control with ibuprofen and tylenol. Supervisory-Addendum Brief Verification & Attestation Participated in pt care: history, MDM, physical Personally performed: exam, history, MDM Care discussed with: Medical Student Procedures: n/a Results interpretation: Verified all documentation I independently performed my own history and physical and physical examination. I formulated my own impression and plan. I also reviewed the documentation of the medical student. JEANIE LEAL Apr 26, 2022 08:17 RYANNE BLOOD JR, MD Apr 26, 2022 10:10
[2022-04-26] MEDS ORDERED: ASPIRIN E.C. 81 MG (ECOTRIN) TAB PO SCH (09:00)
[2022-04-26] MEDS ORDERED: TICA90TA PO (09:47)
[2022-04-26] MEDS ORDERED: ASPI-1238 PO (09:47)
[2022-04-26] MEDS ORDERED: ROSU20TA32 PO (09:47)
[2022-04-26] MEDS ORDERED: NITR0.4T39 SL (09:47)
[2022-04-26] MEDS ORDERED: CYAN-41 PO (09:47)
[2022-04-26] MEDS ORDERED: MTP25TSR PO (09:47)
--- NOTE | 2022-04-26 09:59 | History & Physical-Hospitalist ---
History of Present Illness HPI/Chief Complaint Pt is a 56-year-old female with past medical history of coronary artery disease with stent placement in December of this year who presented to the emergency department due to chest pain and right arm pain. She states it started a couple of days ago and she describes it as a chest tightness as if she has a tight bra on. She also reports that her right arm feels quite sore. It continued to worsen yesterday so she decided to seek evaluation in the emergency department given her history of heart disease. She reports compliance with her medications and saw Dr. Blood just a few weeks ago. This morning she reports improved chest pain though still has some arm discomfort. She denies any nausea or vomiting, shortness of breath, diaphoresis, jaw pain. Source: patient Date Seen 04/26/22 Time Seen by a Provider: 07:50 Attending Physician Meagan Solomon PCP Admitting Physician: Joe Mir MD Attending Physician: Joe Mir MD Referring Physician Date of Admission Apr 26, 2022 at 01:10 Home Medications & Allergies Home Medications Reviewed patient Home Medication Reconciliation performed by pharmacy medication reconciliations field technician and/or nursing. Patients Allergies have been reviewed. Allergies Allergies Coded Allergies No Known Drug Allergies (Unverified01/03/22) Past Ljoqjbc-Ypyhxv-Dafiji Hx Patient Social History Marrital Status: Employed/Student: employed Tobacco Use?: Yes Tobacco type used: Cigarettes Smoking Status: Former Smoker (quit 2 weeks ago) Smokeless Tobacco Frequency: Current Someday User (POUCH) Use of E-Cig and/or Vaping dev: No Additional E-Cig or Vaping: NICOTINE GUM-DAILY Substance use?: No Alcohol Use?: Yes Alcohol Frequency: Rarely Pt feels they are or have been: No Immunizations Up To Date Tetanus Booster (TDap): Unknown Hepatitis A: No Hepatitis B: No Current Status Advance Directives: No Communicates: Verbally Primary Language: Northern Irish Preferred Spoken Language: Northern Irish Is interpretation needed?: No Sensory deficits: Vision impairment Implanted or Applied Medical D: Stents Past Medical History Surgeries: Cardiac, Coronary Stent, Hysterectomy, Tonsillectomy, Tubal Ligation Coronary Artery Disease, Heart Attack, High Cholesterol 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 ALSO SMOKELESS TOBACCO POUCH. NOW CHEWS NICOTINE GUM -RARE ETOH USE -DENIES DRUG USE PAST SURGICAL HISTORY: -BILATERAL TUBAL LIGATION 1989 -HYSTERECTOMY FOR UTERINE FIBROIDS/OVARIES INTACT 2005 CARDIAC CATH 01/03/[address] BLOOD: CORONARY ANGIOGRAPHY: Left main coronary artery: Free of significant disease. Left anterior descending coronary artery: Free of significant disease. Left circumflex coronary artery: Codominant and the main vessel was free of significant disease. The first major obtuse marginal branch had a 70% stenosis in the ostium with MARLEN-3 flow. The third major obtuse marginal branch had a 99% stenosis with MARLEN I flow. This was most likely the ischemia related vessel for the acute myocardial infarction. There was a small left posterolateral branch which was free of significant disease. Right coronary artery: Codominant and free of significant disease. RIGHT BRACHIAL ARTERY ANGIOGRAM: After removing the 5 [place] JR4 catheter, the patient was having some apparent spasm in the right upper extremity. When I passed the 5 [place] JL 4 catheter up into the right radial artery, there was again some spasm and the patient was uncomfortable. I removed the guidewire. Intra-arterial nitroglycerin was sent injected through the diagnostic catheter. I was unable to pass the diagnostic catheter into the aortic root and perform the left coronary angiogram. However, when I then attempted to pass the 6 [place] CLS 3.5 guide catheter into the aortic root from the right radial artery, the patient was having even more apparent spasm. The guidewire was removed. The CLS 3.5 guide catheter was positioned in the distal segment of the brachial artery and an angiogram was performed. This showed significant spasm of the right brachial artery. Additional intra-arterial nitroglycerin was administered through the guide catheter but the spasm persisted. As such, the right radial artery access site was aborted for any additional attempt at the percutaneous intervention. PERCUTANEOUS CORONARY INTERVENTION: Percutaneous coronary intervention was carried out on the third obtuse marginal branch through the 6 [place] CLS 3.5 guide catheter from the right femoral approach. The lesion was successfully crossed with a Whisper medium support guidewire. I subsequently performed coronary and plasty with a 2 x 12 mm Trek balloon at a pressure of 6 rosetta. I then advanced a 2 x 15 mm Resolute Dimitri stent into the third obtuse marginal branch. There was a significant amount of movement in the system. I then advanced a [place] guidewire into the left posterolateral branch which helped to stabilize the entire system. I subsequently deployed the Resolute Dimitri stent in the third obtuse marginal branch at a pressure of 14 rosetta. Following stent placement, there was 0% residual stenosis with MARLEN-3 flow. I could see some evidence of probable spasm around the stent. IMPRESSION: 1. Mildly elevated left heart pressures. 2. There was a 99% stenosis of the third obtuse marginal branch. This was most likely the ischemia related vessel for the non-ST elevation myocardial infarction. 3. Right brachial artery angiogram revealed significant spasm of the right brachial artery. 4. Status post drug-eluting stent placement to the third obtuse marginal branch with a 2 x 15 mm Resolute Dimitri stent was 0% residual stenosis and MARLEN-3 flow. Following the stent placement, there did seem to be some appearance of spasm around the stent. 5. The patient is known to have normal left ventricular systolic function with an estimated ejection fraction of 60-65% by echocardiogram performed earlier today. Review of Systems Constitutional: no symptoms reported EENTM: no symptoms reported Respiratory: No dyspnea on exertion, No orthopnea, No short of breath Cardiovascular: see HPI Gastrointestinal: No abdominal pain, No constipation, No diarrhea, No heartburn, No loss of appetite, No nausea, No vomiting Genitourinary: no symptoms reported Musculoskeletal: no symptoms reported Skin: no symptoms reported Psychiatric/Neurological: No Symptoms Reported Physical Exam Physical Exam Vital Signs Vital Signs - First Documented 04/25/22 23:32 Temp 36.5 Pulse 87 Resp 16 B/P (MAP) 150/81 (104) Pulse Ox 99 O2 Delivery Room Air Capillary Refill : Height, Weight, BMI Height: '" Weight: lbs. oz. kg; 28.89 BMI Method: General Appearance: No Apparent Distress, WD/WN HEENT: PERRL/EOMI, Moist Mucous Membranes; No Scleral Icterus (L), No Scleral Icterus (R) Neck: Normal Inspection, Supple Respiratory: Lungs Clear, No Accessory Muscle Use, No Respiratory Distress, Other (chest tenderness to palpation) Cardiovascular: Regular Rate, Rhythm, No JVD, No Murmur Gastrointestinal: Normal Bowel Sounds, Non Tender, Soft Extremity: Normal Capillary Refill, No Calf Tenderness, No Pedal Edema Neurologic/Psychiatric: Alert, Oriented x3, Normal Mood/Affect Results Results/Procedures Labs Laboratory Tests 04/25/22 23:46 04/26/22 03:24 Patient resulted labs reviewed. Imaging: Reviewed Imaging Report Imaging [facility] [place], [place] NAME: RUBEN COLLINS [facility] REC#: [id number] PT STATUS: ADM Simin : 1965 PHYSICIAN: MARY HERMAN DO ADMIT DATE: 04/26/22/ICU Signed Date of Exam:04/26/22 CHEST 1 VIEW, AP/PA ONLY INDICATION: Chest pain. No prior examinations are available for comparison. FINDINGS: The heart size, mediastinal configuration, and pulmonary vascularity are within normal limits. There is no pleural effusion, pneumothorax, or pneumonia. The osseous structures are unremarkable. IMPRESSION: No acute cardiopulmonary abnormality. Dictated by: Dictated on workstation # [id number] Dict: 04/26/22 0510 Trans: 04/26/22 1018 [id number] Interpreted by: PIERCE REZA MD Electronically signed by: PIERCE REZA MD 04/26/22 1018 Assessment/Plan Admission Diagnosis Chest pain Admission Status: Observation Assessment and Plan Chest pain CAD HTN HLD Troponin negative x3 Cardiology consulted, appreciate recs telemetry chest pain seem MSK in nature Continue DAPT and home meds Hopeful to DC home if not further cardiac workup recommended by Dr Blood Diagnosis/Problems Diagnosis/Problems (1) Chest pain Qualifiers: Chest pain type: unspecified Qualified Codes: R07.9 - Chest pain, unspecified (2) Mixed hyperlipidemia (3) Coronary artery disease without angina pectoris MIKAYLA MATHEW MD Apr 26, 2022 09:59
[2022-04-26] MEDS ORDERED: TICAGRELOR 90 MG TABLET (BRILINTA) PO SCH (10:00)
--- NOTE | 2022-04-26 11:12 | Discharge Inst-Simple/Standard ---
Discharge Inst-Standard Discharge Medications New, Converted or Re-Newed RX: Transmitted to Pharmacy Patient Instructions/Follow Up Plan of Care/Instructions/FU: Please continue to take your medications as written. Please follow up with your primary care doctor to follow up this hospital stay. Activity as Tolerated: Yes Discharge Diet: Cardiac Diet Return to The Hospital For: Chest pain, shortness of breath, fever, weakness, if you feel you are getting worse. MIKAYLA MATHEW MD Apr 26, 2022 11:12 am
[2022-04-26] MEDS ORDERED: ROSUVASTATIN 20 MG (CRESTOR) TABLET PO SCH (21:00)
[2022-04-27] MEDS ORDERED: ASPIRIN E.C. 81 MG (ECOTRIN) TAB PO SCH (09:00)
== END 2022-04-26 11:25 | disposition home or self-care (01) ==
LOC: EDUNIT# 23:26 → ER 23:29 → ICU 23:30 → UNDOADMOB 04-26 01:10 → UNDODISOB 04-26 11:25
PROVIDERS: ADMIT Internal Medicine; ATTEND Internal Medicine
DX: R07.89 Other chest pain (principal); E78.2 Mixed hyperlipidemia; I25.10 Atherosclerotic heart disease of native coronary artery without angina pectoris; I27.20 Pulmonary hypertension, unspecified; M79.601 Pain in right arm; Z87.891 Personal history of nicotine dependence
CPT/HCPCS: 71045; 80048; 80053; 82150; 82550; 82553; 83690; 83735; 83874; 83880; 84484 ×2; 85025; 85379; 85610; 85730; 93005 ×2; 93041; 99284; G0378; 36415